=== PATIENT | male | born 1955 | race Caucasian/White ===

== ENCOUNTER 2018-01-25 06:57 | Day surgery (SDC) | payer BC ==
[~2018-01-25 06:57] MED LIST: CEFAZOLIN 2 Gram 2 GM/50 ML BAG IVPB ONE; CELECOXIB 100 MG CAPSULE PO ONE; FAMOTIDINE 20MG TABLET PO ONE; MECLIZINE 25 MG TABLET PO ONE; METOCLOPRAMIDE 10 MG TABLET PO ONE; VANCOMYCIN HCL 1,000 MG in DEXTROSE 5 % IN WATER 250 ML IVPB ONE
[2018-01-25] MEDS ORDERED: BUPIVACAINE 0.25% W/EPI MPF 30ML VIAL IVP ONE (06:58)
[2018-01-25] MEDS ORDERED: PROPOFOL 10 MG/ML VIAL IV ONE (06:58)
[2018-01-25] MEDS ORDERED: LIDOCAINE 2% MDV (20MG/ML) 20ML VIAL IV ONE (06:58)
[2018-01-25] MEDS ORDERED: MIDAZOLAM HCL 2MG/2ML VIAL IV ONE (06:58)
[2018-01-25] MEDS ORDERED: 0.9 % SODIUM CHLORIDE 100ML BAG IV ONE (06:58)
[2018-01-25] MEDS ORDERED: TRANEXAMIC ACID 1,000 MG/10 ML ML IV ONE (06:58)
[2018-01-25] MEDS ORDERED: HYDROCODONE/APAP 5/325MG TABLET PO PRN (11:14)
[2018-01-25] MEDS ORDERED: DIPHENHYDRAMINE HCL 25 MG CAPSULE PO PRN (11:15)
[2018-01-25] MEDS ORDERED: METOCLOPRAMIDE HCL 10 MG/2 ML VIAL IVP PRN (11:15)
[2018-01-25] MEDS ORDERED: TRAMADOL HCL 50 MG TABLET PO PRN (11:15)
[2018-01-25] MEDS ORDERED: AL HYDROX/MAG HYDROX 30ML UD PO PRN (11:15)
[2018-01-25] MEDS ORDERED: MAGNESIUM HYDROXIDE 30 ML UDC PO PRN (11:15)
[2018-01-25] MEDS ORDERED: ZOLPIDEM TARTRATE 5 MG TABLET PO PRN (11:15)
[2018-01-25] MEDS ORDERED: ONDANSETRON HCL IV 4 MG/2 ML VIAL IVP PRN (11:15)
[2018-01-25] MEDS ORDERED: SENNOSIDES/DOCUSATE SODIUM UD CAPSULE PO PRN (11:15)
[2018-01-25] MEDS: RINGERS SOLUTION,LACTATED 1,000 ML IV SCH ×2 (11:20→15:41)
[2018-01-25] MEDS ORDERED: TRANEXAMIC ACID 1,000 MG in 0.9 % SODIUM CHLORIDE 100ML 100 ML IVPB ONE (13:00)
[2018-01-25] MEDS: HYDROCODONE/APAP 5/325MG TABLET PO PRN ×2 (14:13→21:32)
[2018-01-25] MEDS ORDERED: RINGERS SOLUTION,LACTATED 1,000 ML IV PRN (14:23)
--- NOTE | 2018-01-25 16:11 | Rehab Evaluation ---
Patient Information - Patient Information Diagnosis: Degeneration of R knee, s/p R TKA. Ordered Treatment: PT Evaluate and Treat Status: Re-Evaluation Surgery: Yes (R TKA) Date of Surgery: 01/25/18 History: Detail (Per pt report, pt has had gradual degeneration of R knee.) Past Medical/Surgical Hx: PAST MEDICAL/SURGICAL HISTORY Past Surgical History right shoulder rebuild left hip replacement PMH - Respiratory Hx Respiratory Disorders No PMH - Cardiovascular Hx Cardiovascular Disorders No Exercise Tolerance Good PMH - Neuro Hx Neurological Disorders No PMH - GI Hx Gastrointestinal Disorders No PMH - Hx Genitourinary Disorders No PMH - Endocrine Hx Endocrine Disorders No PMH - Musculoskeletal Hx Musculoskeletal Disorders Yes Hx Arthritis Yes: right knee and hands PMH - Psych Hx Psychiatric Problems No PMH - Hematology/Oncology Hx Hematology/Oncology No Disorders Social History: Detail (Pt lives with spouse in 1 story home with 2 steps to enter, railing on L side. Pt has walk-in shower with grab bars and hand held shower head, and elevated toilet with grab bars.) Precautions: Leopold, Fall - Time With Patient Total Time Spent With Patient (Min): 25 Treatment Procedures: Detail (PT evaluation completed, bed mobility, transfers, gait, and pt education.) Subjective Information - Subjective Information Per Patient (Pt laying in bed at start of session, alert and agreeable to therapy at this time. Pt reports feeling tingling sensation in B feet, and minor pain at start of session. Pt left supine in bed with needs met, call light within reach, and nursing attending at bedside.) Objective Data - Pain Pain Present: Yes Pain Intensity: 3 Pain Scale Used: Numeric (1 - 10) - Mental Status Patient Orientation: Oriented x3 - Visual Perception Appears within normal limits for therapeutic activities - ROM Not within normal limits (Decreased R knee flexion and extension ROM.) - Strength/Tone Not within normal limits (Decreased R knee flexion and extension strength, grossly 3+/5.) - Coordination Appears within normal limits for therapeutic activities - Bed Mobility Independent (Pt performed sup<>sit transfer independently, using LLE to assist RLE to EOB. Pt reports dizziness upon sitting EOB, however symptoms dissipated quickly with seated rest break.) - Transfers Needs Assist (Pt performed sit<>stand transfer with RW and CGA for steadying and safety. Pt reports minor dizziness upon standing that dissipated in 1-2 min with standing rest break. Verbal cues given for hand placement during transfer.) - Balance Balance Sitting: Good Balance Standing: Good - Sensation Deficit (Pt reports minor tingling sensation in BLE, responds to light touch.) - Gait Detail (Pt amb 60' with RW and CGA for steadying and safety. Pt amb with step- to pattern, decreased stance time on RLE, and increased weight bearing through UEs. Pt given verbal cues for technique.) - Special Tests No Therapy Assessment - Therapy Assessment Detail (Pt's impairments are consistant with TKA surgical procedure. Pt currently requiring assistance with transfers and ambulation. Pt educated on proper transfer technique. Pt able to verbalize exercises to perform independently throughout the day.) Patient Education - Patient Education Teaching Topic: Exercise/Activity, Precautions Response: Verbalize Understanding Teaching Method: Discussion Teaching Recipient: Patient Barriers To Learning: None Problem List - Problem List Physical Therapy Problem List: Detail (Impaired transfers and gait pattern.) Goals - Goals Physical Therapy Goals: 1) Pt will perform transfers independently with least restrictive assistive device. 2) Pt will ambulate 100' with least restrictive assistive device, independent. 3) Pt will ascend/descend 2 steps with 1 UE support and min A for steadying and safety. Prognosis - Prognosis Good Plan - Plan Physical Therapy Plan: Pt will be seen by PT 1-2 times tomorrow to address current impairments to facilitate safe return to home.
[2018-01-25] MEDS: TRAMADOL HCL 50 MG TABLET PO PRN (17:33)
[2018-01-25] MEDS: CEFAZOLIN 2 Gram 2 GM/50 ML BAG IVPB SCH (17:34)
[2018-01-25] MEDS: ASPIRIN 325 MG TAB ENTERIC-COATED PO SCH (21:32)
[2018-01-26] MEDS: TRAMADOL HCL 50 MG TABLET PO PRN ×2 (00:55→10:37)
[2018-01-26] MEDS: CEFAZOLIN 2 Gram 2 GM/50 ML BAG IVPB SCH ×2 (01:05→10:37)
[2018-01-26] MEDS: HYDROCODONE/APAP 5/325MG TABLET PO PRN (06:53)
[2018-01-26 07:27] LABS: HEMOGLOBIN 11.6 gm/dl (14.0-18.0); MEAN CELL VOLUME 93.5 fl (81-97); MEAN CORPUSCULAR HEMOGLOBIN 30.1 pg (27-33); MEAN CORPUSCULAR HGB CONC 32.2 g/dl (32-36); MEAN PLATELET VOLUME 9.7 fl (7.4-10.4); PLATELET COUNT 248 K/uL (130-400); RED BLOOD COUNT 3.85 M/uL (4.40-5.70); RED CELL DISTRIBUTION WIDTH 12.2 % (11.5-14.5); WHITE BLOOD COUNT W/O DIFF 9.9 K/uL (4.2-12.2)
[2018-01-26] MEDS ORDERED: CELECOXIB 100 MG CAPSULE PO SCH (10:00)
--- NOTE | 2018-01-26 10:08 | Physical Therapy Tx Note ---
Physical Therapy Tx Note - Treatment Note Tolerated: Good Total Time Spent With Patient: 20 Physical Therapy Tx Note: Detail (The patient was up in chair when PT arrived. The patient was independent with sit to and from stand transfer.The patient ambulated with front wheeled walker a distance of 200 feet x 1 WBAT on the R LE. The patient ambulated on stairs with use of folded walker and one railing using proper technique with supervision for safety. The patient has met all inpatient goals and is discharged from inpatient PT.) Physical Therapy Problem List: Detail (Impaired transfers and gait pattern.) Physical Therapy Goals: 1) Pt will perform transfers independently with least restrictive assistive device.(Goal met). 2) Pt will ambulate 100' with least restrictive assistive device, independent.(Goal Met). 3) Pt will ascend/ descend 2 steps with 1 UE support and min A for steadying and safety.(Goal met) Physical Therapy Plan: The patient has met all inpatient PT goals and is discharged from inpatient PT. The patient is to receive outpatient PT.
--- NOTE | 2018-01-26 10:32 | Rehab Evaluation ---
Patient Information - Patient Information Diagnosis: Degeneration of R knee, s/p R TKA. Ordered Treatment: OT Evaluate and Treat Status: Initial Evaluation Surgery: Yes (R TKA) Date of Surgery: 01/25/18 History: Detail (Per pt report, pt has had gradual degeneration of R knee.) Past Medical/Surgical Hx: PAST MEDICAL/SURGICAL HISTORY Past Surgical History right shoulder rebuild left hip replacement PMH - Respiratory Hx Respiratory Disorders No PMH - Cardiovascular Hx Cardiovascular Disorders No Exercise Tolerance Good PMH - Neuro Hx Neurological Disorders No PMH - GI Hx Gastrointestinal Disorders No PMH - Hx Genitourinary Disorders No PMH - Endocrine Hx Endocrine Disorders No PMH - Musculoskeletal Hx Musculoskeletal Disorders Yes Hx Arthritis Yes: right knee and hands PMH - Psych Hx Psychiatric Problems No PMH - Hematology/Oncology Hx Hematology/Oncology No Disorders Social History: Detail (Pt lives with spouse and daughter in 1 story home with 7 steps and chad railings at the entrance. Pt has a tub/shower combination but is planning to use his parents walk in shower that has a shower seat (they live 1 block away). He has an elevated toilet with grab bars. Spouse and daughter are responsible for IADLs. Pt has a 2 wheeled walker and crutches.) Precautions: [place], Fall - Time With Patient Total Time Spent With Patient (Min): 30 Treatment Procedures: Detail (OT eval low complexity) Subjective Information - Subjective Information Per Patient Objective Data - Pain Pain Present: Yes (04/08) - Mental Status Patient Orientation: Oriented x3 - Visual Perception Appears within normal limits for therapeutic activities - ROM Within normal limits (Chad UE AROM WNL) - Strength/Tone Within normal limits (Chad UE strength WNL) - Coordination Appears within normal limits for therapeutic activities - Balance Balance Sitting: Good - Sensation Intact - ADL's/IADL's Detail (Pt educated re: modified LE dressing techniques, he was already dressed and was comfortable verbalizing technique. Reviewed kitchen and shower safety and modifications, pt verbalized understanding.) Therapy Assessment - Therapy Assessment Detail (Pt able to verbalize modified LE dressing technique.) Problem List - Problem List Physical Therapy Problem List: Detail (Impaired transfers and gait pattern.) Occupational Therapy Problem List: Detail (No current IP OT problems identified. ) Goals - Goals Physical Therapy Goals: 1) Pt will perform transfers independently with least restrictive assistive device.(Goal met). 2) Pt will ambulate 100' with least restrictive assistive device, independent.(Goal Met). 3) Pt will ascend/ descend 2 steps with 1 UE support and min A for steadying and safety.(Goal met) Occupational Therapy Goals: No current IP OT goals identified. Prognosis - Prognosis Good Plan - Plan Physical Therapy Plan: The patient has met all inpatient PT goals and is discharged from inpatient PT. The patient is to receive outpatient PT. Occupational Therapy Plan: No further IP OT recommended. Thank you for this referral.
[2018-01-26] MEDS: ASPIRIN 325 MG TAB ENTERIC-COATED PO SCH (10:43)
[2018-01-26] MEDS ORDERED: ACETAMINOPHEN 325 MG TAB PO PRN (11:15)
[2018-01-26] MEDS: RINGERS SOLUTION,LACTATED 1,000 ML IV SCH (15:02)
--- NOTE | 2018-01-29 13:20 | Discharge Summary ---
DATE OF ADMISSION: 01/25/2018 DATE OF DISCHARGE: 01/26/2018 ADMITTING DIAGNOSIS: Osteoarthritis of the right knee. DISCHARGE DIAGNOSIS: Osteoarthritis of the right knee. OPERATIVE PROCEDURE: Elective right total knee arthroplasty. DESCRIPTION: This 62-year-old male was taken to the operating room for elective total knee arthroplasty and tolerated the operative procedure well on 01/25/2018. On the day of discharge, the patient had the drain removed and cleared physical therapy and was ready for discharge. He was scheduled for outpatient physical therapy. He was instructed to take aspirin 325 mg daily for 2 weeks. He was given a prescription for [place] 5/325, #40, 1 every 4 hours as necessary for pain. He was instructed to wear his DAPHNIE hose during the day and remove them at night. Routine wound care instructions were given. He will follow up in my clinic in 2 weeks. Should he have any problems prior to being seen, he was instructed to call my office. MICHELLE
--- NOTE | 2018-01-31 11:10 | Operative Note ---
DATE OF SURGERY: 01/25/2018 Surgeon: Prabhu Ramirez DO PREOPERATIVE DIAGNOSIS: Primary osteoarthritis of the right knee. POSTOPERATIVE DIAGNOSIS: Primary osteoarthritis of the right knee. OPERATION: Right total knee arthroplasty. DESCRIPTION OF PROCEDURE: This 61-year-old male was taken to the operating room and placed in the supine position on the operating room table. Spinal anesthesia was induced. The right lower extremity was elevated. It was prepped with Hibiclens and draped in the usual sterile fashion, exsanguinated and the tourniquet inflated to 300 mmHg. All scrub personnel wore personal isolation suits. An anterior longitudinal midline incision was made followed by a medial parapatellar arthrotomy incision. An intracondylar drill hole was made for the intramedullary alignment payton, and because of the patient's mild extension contracture, an additional millimeter was taken off the distal femur. Therefore, a 6-degree valgus 10 mm cut was made. The sizing jig was affixed and a size 67.5, was seen to be the appropriate size. The 4-in-1 cutting block was then pinned in 3 degrees of external rotation. The appropriate cuts were made. The wafers of bone were removed. We then directed our attention to the proximal tibia, and an extramedullary alignment guide was used to cut the proximal tibia referencing a 10 mm cut off the lateral tibial plateau. After the appropriate alignment had been assured, the block was pinned into place and a 3-degree posterior slope cut was made. The wafer of bone was removed. Remnants of the menisci and osteophytes were removed from the posterior aspect of the knee. The wound was irrigated with lactated Ringer's solution. The tibia was sized to a size 79, and a stem punch was used. Because of sclerosis on the medial side of the tibia, some holes were drilled in the sclerotic bone of the medial tibial plateau. The patella was then measured, cut, and restored to anatomic height with a 37 x 8.6 mm trial. The trial components were then inserted, and a 10 mm bearing was seen to be the appropriate size. Taken in through full extension and full flexion with no gross instability of the knee being identified. All trial components were then removed, and the wound again copiously irrigated with pulse lavage lactated Ringer's solution. Exparel was injected in the posterior, medial, and lateral corners of the joint. At the completion of the procedure with final components inserted, the remainder was injected into the periosteum and joint capsule of the proximal tibia and distal femur. All bony surfaces were dried. All components were cemented into place and excess cement removed after the insertion of each component. Initially the tibial baseplate was cemented followed by the tibial bearing. We then inserted the femoral component and finally the patella. The knee was then taken through range of motion once the cement had hardened, and good stability was identified throughout the entire range of motion. A drain was placed through a separate stab incision. The arthrotomy incision was closed with a #2 Vicryl. The subcutaneous tissue was closed with 0 Vicryl. Sterile dressings were applied and a Polar Care was applied. The patient was taken to the recovery room in satisfactory condition. GROSS PATHOLOGY: This patient demonstrated severe medial compartment osteoarthritis with full-thickness articular cartilage loss noted on both sides of the joint. 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 Lateral compartment appeared to be relatively spared with grade 2 changes being noted. Final components inserted were a [employer] size 67.5 cruciate retaining femur, a 79 tibial baseplate, a 10 mm anterior stabilized D1 bearing, and a 37 x 8.6 mm patella was used. CC: Graciela MARTINEZ
== END 2018-01-26 13:30 | disposition home or self-care (01) ==
LOC: SUR 06:57 → MEDSURG 10:59 → SUR 01-26 13:30
PROVIDERS: ATTEND Orthopaedic Surgery
DX: M17.11 Unilateral primary osteoarthritis, right knee (principal)
CPT/HCPCS: 27447; 01402; 64447; 85025; 94760; J0690 ×2; J3490; G8978; G8979 ×2; G8980; G8987; G8988; G8989; 97530; J7060; J7120